=== PATIENT | female | born 1940 | race Caucasian/White ===

== ENCOUNTER 2019-06-18 14:36 | Observation (INO) ==
[2019-06-18] MEDS ORDERED: Acetaminophen 325 MG TABLET PO PRN (17:32)
[2019-06-18] MEDS ORDERED: Naloxone 0.4 MG/ML INJ IVP PRN (17:32)
[2019-06-18] MEDS ORDERED: traMADol 50 MG TABLET PO PRN (17:32)
[2019-06-18] MEDS ORDERED: *HR* OxyCODONE Immed Rel 5 MG TABLET PO PRN (17:32)
--- NOTE | 2019-06-18 17:40 | Internal Med History&Physical ---
Date of Encounter: 06/18/19 Time of Encounter: 18:10 Internal Medicine - H&P: HPI Chief complaint: chest pain Admitted From: Direct Admit Plans for Post Hospital Care: Home History of present illness: Ms. 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 Patient mentions that the pain started in the morning today, on the left upper chest, nonradiating, intermittent, sharp, got worse when pressed, no relieving factors. Patient was given fentanyl at the outside hospital but the pain stayed the same. Denies fever, chills, rigors. Denies runny nose and watery eyes, acute viral illness. Denies pain with inspiration. Denies trauma. Denies diaphoresis, shortness of breath, orthopnea, exertional dyspnea. History of pacemaker and she thinks that pain is situated at the same area where the pacemaker is placed. Denies pain like this in the past. Denies any history of ACS, CABG, stents placement. Lab work from the outside hospital was reviewed. No gross lab abnormalities. Troponin within normal limits. EKG was reviewed from the outside hospital, showed T-wave inversion in multiple leads that these changes have been present in the previous EKGs. Patient is currently in the hospital for further management of the chest pain. Past Med Surg Social Fam HX - Past Medical History Medical history: arthritis, atrial fibrillation, COPD, hyperlipidemia, hypertension Psychiatric history: no psych history - Past Surgical History Surgical History: hysterectomy - Social History Smoking Status: Former smoker Smokeless Tobacco Status: No Alcohol use: none Drug use: none - Additional Family History Additional family history: Reviewed and non contributory Internal Medicine - H&P: Meds Allergy/AdvReac Type Severity Reaction Status Date / Time morphine Allergy Rash Verified 06/18/19 17:02 promethazine Allergy Rash Verified 06/18/19 17:02 Sulfa (Sulfonamide Allergy Rash Verified 06/18/19 17:02 Antibiotics) All Systems PM: A 10-system review of systems was performed and is negative for pertinent findings except as documented above in the HPI. Review of systems: General: Negative for fever, chills, rigors. HEENT: Negative for neck swelling, discharge from nose, discharge from ears. EYES: Negative for any discharge from the eyes. Respiratory: Negative for shortness of breath, orthopnea, exertional dyspnea. Cardiovascular: See HPI Gastrintestical: Negative for diarrhea, constipation, blood in stools. Genitourinary: Negative for dysuria, hematuria, nocturia, increased frequency of urine. Hematological: Negative for blood loss, negative for active cancer. Neurological: Negative for headache, dizziness, blurry vision, loss os power and sensations. Endocrinology: Negative for constipation, polyuria, polydipsia. Integumentary: Negative for rash, wounds, ulcers. Psychiatric: Negative for anxiety or depression. - Constitutional Vitals: Temp Pulse Resp BP 97.6 F 70 17 172/91 06/18/19 17:24 06/18/19 17:24 06/18/19 17:24 06/18/19 17:24 Exam: General: Alert and oriented, no physical distress, able to follow commands. HEENT: No thyromegaly, no lymphadenopathy, no discharge. Eyes: No discharge. Normal conjuctiva, no icterus Respiratory: Normal vesicular breathing, no added sounds, breathing equal in bot h sides. CVS: Normal heart sounds, no murmurs, regular rhthm, no edema. Tenderness on the upper chest with palpation, no erythema, no signs of cellulitis. Extremities: No peripheral edema, peripheral pulses intact. Lymph nodes: No lymphadenopathy Gastrointestinal: Soft, nontender abdomen, normal abdominal sounds. No distention noted. Genitourinary: No paravertebral tenderness. Skin: No rash, ulcers or wound. Neurological: Alert and oriented. No focal deficits. Cranial nerves II-XII intact. - Assessment and Plan (1) Chest pain Current Visit: Yes Status: Acute Assessment and plan: Likely muscular skeletal. Unlikely to be ACS. Troponin done in the HOSPITAL WAS WITHIN NORMAL LIMITS. EKG WAS UNCHANGED FROM THE PREVIOUS EKGS. MOST RECENT ECHOCARDIOGRAPHY WAS DONE IN 2016 that showed normal ejection fraction with mild left ventricular hypertrophy. We will repeat a troponin to rule out ACS. Telemetry. Cardiology consult. Order echocardiography. Nothing by mouth after midnight in case cardiology is planning for further interventions. Pain managament. Qualifiers: Chest pain type: unspecified Qualified Code(s): R07.9 - Chest pain, unspecified (2) Anticoagulation goal of INR 2 to 3 Current Visit: Yes Status: Acute Assessment and plan: Thank you, then because of atrial fibrillation with a goal of 2-3. Continue on the current dose once confirmed from the pharmacy INR done at [facility] was 1.92 Patient took Coumadin today. (3) DVT prophylaxis Current Visit: Yes Status: Acute Assessment and plan: On Coumadin. (4) Afib Current Visit: No Status: Chronic Assessment and plan: History of atrial fibrillation status post pacemaker placement. Currently heart rate is normal Continue to monitor. AC with Coumadin. Qualifiers: Atrial fibrillation type: unspecified Qualified Code(s): I48.91 - Unspecified atrial fibrillation - Time Spent With Patient Total time spent is greater than 50% in coordination of care (as documented) at patient's floor/unit and/or counseling patient:
[2019-06-19 02:12] LABS: Basophils % 0.5 %; Eosinophils # 0.1 K/mcL (0.0-0.6); Eosinophils % 2.2 %; Hematocrit 45.4 % (35.3-44.9); Hemoglobin 13.8 g/dL (11.5-15.4); Immature Granulocytes % 0.2 % (0-4); Lymphocytes # 2.1 K/mcL (0.6-4.6); Mean Corpuscular HGB Conc 30.4 g/dL (31.6-35.5); Mean Corpuscular Hemoglobin 28.5 pg (28.0-33.3); Mean Corpuscular Volume 93.6 fL (83.0-100.0); Mean Platelet Volume 10.7 fL (9.4-12.4); Monocytes # 0.4 K/mcL (0.0-1.3); Monocytes % 7.2 %; Neutrophils # 2.9 K/mcL (1.6-8.9); Platelet Count 160 K/mcL (140-400); Red Blood Count 4.85 M/mcL (3.82-4.97); Red Cell Distribution Width 14.3 % (11.5-14.5); Segmented Neutrophils % 52.9 %; White Blood Count 5.5 K/mcL (4.3-11.1)
[2019-06-19 02:18] LABS: INR 1.8; Prothrombin Time 20.2 Seconds (9.4-12.1)
[2019-06-19 02:35] LABS: BUN/Creatinine Ratio 22 (6-26); Blood Urea Nitrogen 17 mg/dL (8-23); Calcium 9.4 mg/dL (8.6-10.3); Carbon Dioxide 27 mEq/L (23-29); Chloride 105 mEq/L (98-107); Glucose 110 mg/dL (70-105); Osmolality,Calculated 296 (280-300); Potassium 4.1 mEq/L (3.5-5.1); Sodium 142 mEq/L (136-145); eGFR For African Americans > 60 (> 60); eGFR For Non-African Americans > 60 (> 60)
[2019-06-19 08:06] VITALS: BP 129/71
[2019-06-19] MEDS ORDERED: Ibuprofen 400 MG TABLET PO PRN (08:36)
[2019-06-19] MEDS ORDERED: Diltiazem CD (24hr) 240 MG CAPSULE PO SCH (12:30)
--- NOTE | 2019-06-19 12:42 | Discharge Summary ---
- NOTES TO OUTPATIENT PROVIDER Notes to Outpatient Provider: Came with the chest pain, echo normal, refused stress test. Chest pain likely musculoskeltal. Date of Encounter: 06/19/19 Time of Encounter: 09:15 - Discharge Diagnosis (1) Chest pain Priority: Primary Status: Acute Qualifiers: Chest pain type: unspecified Qualified Code(s): R07.9 - Chest pain, unspecified (2) Anticoagulation goal of INR 2 to 3 Priority: Secondary Status: Acute (3) DVT prophylaxis Priority: Secondary Status: Acute (4) Afib Priority: Secondary Status: Chronic Qualifiers: Atrial fibrillation type: unspecified Qualified Code(s): I48.91 - Unspecified atrial fibrillation Hospital course: Ms. 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 Patient EKG did not show any new changes jeffrey rning for ischemia. Troponin remained negative. Echocardiogram was done which showed normal ejection fraction, normal motion abnormalities. Cardiology was consulted, recommended stress test but the patient refused a stress test. Patient was given ibuprofen for the pain with some relief. Advised the patient to take ibuprofen for the pain for the next 3-4 days as the pain seems to be musculoskeletal. Patient was upset because of the overall involvement of the hospital and because the medication were not reconciled on time. Discussed with the patient that her medications have been reconciled and she will be started on her home medications now but the patient still upset and she wants to leave the hospital. He was told that she was not given her morning medications anyway because she was nothing by mouth for the stress test. Discussed with the patient that she will be discharged safely as her echo is okay. Advised the patient follow up with her community center coordinator. - Time Spent with Patient Total time spent providing and/or coordinating discharge services: 35 minutes - Discharge Medications Prescriptions: New Ibuprofen [Motrin] 400 mg PO Q8HR PRN tablet PRN Reason: Mild Pain Continued Warfarin [Coumadin] 4 mg PO DAILY Losartan [Cozaar] 50 mg PO DAILY Diltiazem [Cardizem] 240 mg PO DAILY Atorvastatin [Lipitor] 40 mg PO HS Home Medications: Atorvastatin [Lipitor] 40 mg PO HS 06/18/19 [History] Diltiazem [Cardizem] 240 mg PO DAILY 06/18/19 [History] Losartan [Cozaar] 50 mg PO DAILY 06/18/19 [History] Warfarin [Coumadin] 4 mg PO DAILY 06/18/19 [History] Ibuprofen [Motrin] 400 mg PO Q8HR PRN tablet 06/19/19 [Rx] Allergies/Adverse Reactions: Allergy/AdvReac Type Severity Reaction Status Date / Time morphine Allergy Rash Verified 06/18/19 17:02 promethazine Allergy Rash Verified 06/18/19 17:02 Sulfa (Sulfonamide Allergy Rash Verified 06/18/19 17:02 Antibiotics) Date of admission: 06/18/19 16:35 Primary care physician: PCP NONE - Constitutional Vitals: Temp Pulse Resp BP Pulse Ox 97.6 F 70 16 129/71 96 06/19/19 08:02 06/19/19 08:02 06/19/19 08:02 06/19/19 08:02 06/19/19 08:02 Exam: General: Alert and oriented, no physical distress, able to follow commands. Eyes: No discharge. Normal conjuctiva, no icterus Respiratory: Normal vesicular breathing, no added sounds, breathing equal in both sides. CVS: Normal heart sounds, no murmurs, regular rhthm, no edema. Tenderness on the upper chest with palpation, no erythema, no signs of cellulitis. Extremities: No peripheral edema, peripheral pulses intact. Lymph nodes: No lymphadenopathy Gastrointestinal: Soft, nontender abdomen, normal abdominal sounds. No distention noted. Genitourinary: No paravertebral tenderness. Skin: No rash, ulcers or wound. Neurological: Alert and oriented. No focal deficits. Cranial nerves II-XII intact. - Patient Status Disposition: Home, Self-Care Condition: Good Functional capacity at discharge: independent ambulation Overall status at discharge: patient is back to baseline - Discharge Instructions Follow Up With: NONE,PCP [Primary Care Provider] - - Diet and Activity Activity: increase activity as tolerated Diet: low salt diet
[2019-06-19] MEDS ORDERED: *HR* Warfarin 4 MG TABLET PO SCH (18:00)
== END 2019-06-19 13:15 | disposition home or self-care (01) ==
LOC: 3BNU → SUATTDRO 16:35
PROVIDERS: ADMIT Internal Medicine; ATTEND Internal Medicine